=== PATIENT | male | born 1980 | race Caucasian/White ===

== ENCOUNTER 2016-06-21 11:28 | Emergency (ER) | payer SELFPAY ==
[~2016-06-21] VITALS: Ht 177.8 cm; Wt 83.9 kg
[2016-06-21] MEDS ORDERED: IV NORMAL SALINE 1000ML BAG 1,000 ML IV ONE (12:30)
[2016-06-21] MEDS ORDERED: ONDANSETRON PF 4 MG/2 ML VIAL. IV ONE (12:30)
[2016-06-21] MEDS ORDERED: MORPHINE SULFATE 4 MG/ML DISP.SYRIN. IV ONE (12:30)
--- NOTE | 2016-06-21 12:32 | PHYS DOC ---
Past Medical History Past Medical History: Kidney Stone Past Surgical History: No Surgical History Alcohol Use: None Drug Use: None Adult General Chief Complaint Chief Complaint: ABDOMINAL PAIN HPI HPI This is a 36-year-old male who states he is having is a Left lateral abdominal pain that is been there for the last several days intermittently but has worsened over the last several hours. He states he has had symptoms like this previously when he had a kidney stone. He denies any history of abdominal surgery. He states he has been nauseated and vomited earlier today. He did not eat or drink anything today. He states he had a bowel movement earlier today that was otherwise normal. He states his pain is an 8 out of 10 localized primarily to his left lateral abdominal region. He states he has not really been able to urinate much today but denies any blood in his urine. Review of Systems Review of Systems Constitutional: Denies fever or chills [] Eyes: Denies change in visual acuity, redness, or eye pain [] HENT: Denies nasal congestion or sore throat [] Respiratory: Denies cough or shortness of breath [] Cardiovascular: No additional information not addressed in HPI [] GI: Has abdominal pain, has nausea, denies vomiting, denies bloody stools or diarrhea [] : Denies dysuria or hematuria [] Musculoskeletal: Denies back pain or joint pain [] Integument: Denies rash or skin lesions [] Neurologic: Denies headache, focal weakness or sensory changes [] Endocrine: Denies polyuria or polydipsia [] Current Medications Current Medications Current Medications Medications (Trade) Dose Ordered Sig/Macy Start Time Stop Time Status Last Admin Dose Admin Morphine Sulfate 4 mg 4 mg 1X ONCE 06/21/16 12:30 06/21/16 12:31 DC 06/21/16 12:36 4 MG Ondansetron HCl (Zofran) 4 mg 1X ONCE 06/21/16 12:30 06/21/16 12:31 DC 06/21/16 12:35 4 MG Sodium Chloride (Iv Sodium Chloride 0.9% 1000ml Bag) 1,000 ml @ 1,000 mls/hr 1X ONCE 06/21/16 12:30 06/21/16 13:29 DC 06/21/16 12:35 1,000 MLS/HR Allergies Allergies Allergies Coded Allergies Type Severity Reaction Last Updated Verified No Known Drug Allergies 03/29/13 No Physical Exam Physical Exam Constitutional: Well developed, well nourished, no acute distress, non-toxic appearance. [] HENT: Normocephalic, atraumatic, bilateral external ears normal, oropharynx moist, no oral exudates, nose normal. [] Eyes: PERRLA, EOMI, conjunctiva normal, no discharge. [] Neck: Normal range of motion, no tenderness, supple, no stridor. [] Cardiovascular:Heart rate regular rhythm, no murmur [] Lungs & Thorax: Bilateral breath sounds clear to auscultation [] Abdomen: Bowel sounds normal, soft, moderate left lateral abdominal tenderness, no masses, no pulsatile masses. [] Skin: Warm, dry, no erythema, no rash. [] Back: No tenderness, left CVA tenderness. [] Extremities: No tenderness, no cyanosis, no clubbing, ROM intact, no edema. [] Neurologic: Alert and oriented X 3, normal motor function, normal sensory function, no focal deficits noted. [] Psychologic: Affect normal, judgement normal, mood normal. [] Current Patient Data Vital Signs Vital Signs Date Time Temp Pulse Resp B/P Pulse Ox O2 Delivery O2 Flow Rate FiO2 06/21/16 14:08 100 18 130/88 Room Air 06/21/16 12:44 97 06/21/16 11:39 97.6 97.6 Lab Values Laboratory Tests Test 06/21/16 12:20 06/21/16 13:35 White Blood Count 6.6x10^3/uL (4.0-11.0) Red Blood Count 5.14x10^6/uL (4.30-5.70) Hemoglobin 14.1g/dL (13.0-17.5) Hematocrit 42.8% (39.0-53.0) Mean Corpuscular Volume 83fL (79-100) Mean Corpuscular Hemoglobin 28pg (25-35) Mean Corpuscular Hemoglobin Concent 33g/dL (31-37) Red Cell Distribution Width 13.6% (11.5-14.5) Platelet Count 278x10^3/uL (140-400) Neutrophils (%) (Auto) 55% (31-73) Lymphocytes (%) (Auto) 36% (24-48) Monocytes (%) (Auto) 8% (0-9) Eosinophils (%) (Auto) 1% (0-3) Basophils (%) (Auto) 0% (0-3) Neutrophils # (Auto) 3.6x10^3uL (1.8-7.7) Lymphocytes # (Auto) 2.4x10^3/uL (1.0-4.8) Monocytes # (Auto) 0.5x10^3/uL (0.0-1.1) Eosinophils # (Auto) 0.0x10^3/uL (0.0-0.7) Basophils # (Auto) 0.0x10^3/uL (0.0-0.2) Sodium Level 128mmol/L (136-145) L Potassium Level 4.2mmol/L (3.5-5.1) Chloride Level 100mmol/L (98-107) Carbon Dioxide Level 30mmol/L (21-32) Anion Gap (6-14) Blood Urea Nitrogen 18mg/dL (8-26) Creatinine 0.8mg/dL (0.7-1.3) Estimated GFR (Cockcroft-Gault) 109.4 Glucose Level 101mg/dL (70-99) H Calcium Level 9.0mg/dL (8.5-10.1) Urine Collection Type Unknown Urine Color Yellow Urine Clarity Clear Urine pH 6.0 Urine Specific [place] 1.015 Urine Protein Negativemg/dL (NEG-TRACE) Urine Glucose (UA) Negativemg/dL (NEG) Urine Ketones (Stick) Negativemg/dL (NEG) Urine Blood Negative (NEG) Urine Nitrite Negative (NEG) Urine Bilirubin Negative (NEG) Urine Urobilinogen Dipstick 0.2mg/dL (0.2 mg/dL) Urine Leukocyte Esterase Small (NEG) Urine RBC 0/HPF (0-2) Urine WBC 1-4/HPF (0-4) Urine Squamous Epithelial Cells Few/LPF Urine Bacteria Few/HPF (0-FEW) Urine Mucus Slight/LPF Laboratory Tests 06/21/16 12:20 Laboratory Tests 06/21/16 12:20 EKG EKG [] Radiology/Procedures Radiology/Procedures CT of the abdomen and pelvis without contrast demonstrated the following: CT of the abdomen and pelvis without contrast, 06/21/2016: History: Severe flank pain Noncontrast scans were obtained through the urinary tract utilizing the renal stone protocol. No intrarenal calculi are identified. The renal collecting systems and ureters are not dilated. No ureteral calculus is evident. The partially filled urinary bladder is unremarkable. Several small prostatic calcifications are noted. There are groundglass dependent opacities in both lungs probably due to atelectasis. No pleural fluid is evident. The unopacified liver shows no abnormality. The gallbladder is unremarkable. No pancreatic abnormality is seen. The spleen is of normal size. No adrenal abnormality is detected. No abdominal or pelvic adenopathy is seen. The bowel loops are not dilated. There is a moderate amount of stool in the right colon. The appendix is visualized and shows no abnormality. No free fluid or free air is evident in the abdomen or pelvis. IMPRESSION: No urinary tract calculi are identified. Course & Med Decision Making Course & Med Decision Making Pertinent Labs and Imaging studies reviewed. (See chart for details) Otherwise healthy 36-year-old male with no known medical allergies is having significant left lateral abdominal pain that has now become constant and severe but has been intermittently present for the last several days. His symptoms seem consistent with renal colic and he will be worked up for this as well as any other acute cause with a CT of his abdomen and pelvis as well as IV fluids, IV pain control, and nausea meds. Urinalysis will also be obtained. His laboratory workup was unrevealing. A CT of his abdomen and pelvis did not reveal any acute abnormalities. I discharged the patient home with a course of Zofran and Motrin for his symptoms. I counseled that they could be musculoskeletal related but that he is to follow closely with his primary care doctor for symptom resolution. Patient is very agreeable with this plan and will be discharged without incident. Dragon Disclaimer Dragon Disclaimer This electronic medical record was generated, in whole or in part, using a voice recognition dictation system. Departure Departure Impression: Primary Impression: Abdominal pain Disposition: 01 HOME, SELF-CARE Admitting Physician: Other Condition: STABLE Referrals: NO PCP (PCP) Patient Instructions: Abdominal Pain Additional Instructions: Please take your medications as prescribed. Return to the ER if you develop any worsening of your symptoms. Continue to drink plenty of fluids. Scripts Ondansetron Hcl (Zofran)4 Mg Tablet4 Mg PO BID PRN NAUSEA/VOMITING #10 TAB Prov:LUZ ELENA ALARCON DO 06/21/16 Ibuprofen 800 Mg [id number] Mg PO PRN Q6HRS PRN INFLAMMATION #20 TAB Prov:LUZ ELENA ALARCON DO 06/21/16 LUZ ELENA ALARCON DO Jun 21, 2016 12:32
[2016-06-21 12:42] LABS: BASO % 0 % (0-3); EOS % 1 % (0-3); HEMATOCRIT 42.8 % (39.0-53.0); HEMOGLOBIN 14.1 g/dL (13.0-17.5); LYMPH # 2.4 x10^3/uL (1.0-4.8); LYMPH % 36 % (24-48); MEAN CORPUSCULAR HEMOGLOBIN 28 pg (25-35); MEAN CORPUSCULAR HGB CONC 33 g/dL (31-37); MEAN CORPUSCULAR VOLUME 83 fL (79-100); MONO % 8 % (0-9); NEUT % 55 % (31-73); PLATELET COUNT 278 x10^3/uL (140-400); RED BLOOD COUNT 5.14 x10^6/uL (4.30-5.70); RED CELL DISTRIBUTION WIDTH 13.6 % (11.5-14.5); WHITE BLOOD COUNT 6.6 x10^3/uL (4.0-11.0)
[2016-06-21 13:04] LABS: BLOOD UREA NITROGEN 18 mg/dL (8-26); CARBON DIOXIDE 30 mmol/L (21-32); CHLORIDE 100 mmol/L (98-107); CREATININE 0.8 mg/dL (0.7-1.3); GFR 109.4; GLUCOSE 101 mg/dL (70-99); POTASSIUM 4.2 mmol/L (3.5-5.1); SODIUM 128 mmol/L (136-145)
--- NOTE | 2016-06-21 13:37 | RAD ---
CT of the abdomen and pelvis without contrast, 06/21/2016: History: Severe flank pain Noncontrast scans were obtained through the urinary tract utilizing the renal stone protocol. No intrarenal calculi are identified. The renal collecting systems and ureters are not dilated. No ureteral calculus is evident. The partially filled urinary bladder is unremarkable. Several small prostatic calcifications are noted. There are groundglass dependent opacities in both lungs probably due to atelectasis. No pleural fluid is evident. The unopacified liver shows no abnormality. The gallbladder is unremarkable. No pancreatic abnormality is seen. The spleen is of normal size. No adrenal abnormality is detected. No abdominal or pelvic adenopathy is seen. The bowel loops are not dilated. There is a moderate amount of stool in the right colon. The appendix is visualized and shows no abnormality. No free fluid or free air is evident in the abdomen or pelvis. IMPRESSION: No urinary tract calculi are identified. PQRS Compliance Statement: One or more of the following individualized dose reduction techniques were utilized for this examination: 1. Automated exposure control 2. Adjustment of the mA and/or kV according to patient size 3. Use of iterative reconstruction technique
[2016-06-21 13:46] LABS: BILIRUBIN,URINE NEGATIVE (NEG); GLUCOSE,URINE NEGATIVE (NEG); NITRITE,URINE NEGATIVE (NEG); PROTEIN,URINE NEGATIVE (NEG-TRACE); UROBILINOGEN,URINE 0.2 mg/dL (0.2 mg/dL)
[2016-06-21 14:08] VITALS: BP 130/88
[2016-06-21 14:21] LABS: BACTERIA,URINE FEW /HPF (0-FEW); RBC,URINE 0 /HPF (0-2); SQUAMOUS EPITHELIAL CELL,UR FEW /LPF
[2016-06-21] MEDS ORDERED: ONDA4TAB7 PO (14:37)
[2016-06-21] MEDS ORDERED: IBUP-1060 PO (14:37)
== END 2016-06-21 14:40 | disposition home or self-care (01) ==
LOC: ER 11:28
DX: R10.9 Unspecified abdominal pain (principal); Z87.442 Personal history of urinary calculi; R11.2 Nausea with vomiting, unspecified
CPT/HCPCS: 36415; 74176; 80048; 81001; 85027; 87086; 96361; 96374; 96375; 99285; J2270; J2405; J7030